=== PATIENT | female | born 1955 | race Caucasian/White ===

== ENCOUNTER 2016-06-10 09:20 | Outpatient (CLI) | payer MEDICARE | END 2016-06-10 09:21 | disposition home or self-care (01) | DX: G47.33 Obstructive sleep apnea (adult) (pediatric) (principal) | CPT/HCPCS: 99213; G0463 ==

== ENCOUNTER 2016-06-12 10:55 | Outpatient (CLI) | payer MEDICARE | END 2016-06-12 23:59 | disposition home or self-care (01) | DX: R19.7 Diarrhea, unspecified (principal) ==

== ENCOUNTER 2016-07-04 22:54 | Outpatient (CLI) | payer MEDICARE | END 2016-07-04 22:55 | disposition home or self-care (01) | DX: G47.33 Obstructive sleep apnea (adult) (pediatric) (principal); Z68.41 Body mass index [BMI] 40.0-44.9, adult ==

== ENCOUNTER 2016-10-07 10:47 | Outpatient (CLI) | payer MEDICARE ==
--- NOTE | 2016-10-15 16:27 | Mammography Report ---
DIGITAL SCREENING MAMMOGRAM: 10/07/2016 CLINICAL INDICATION: A 61-year-old for screening. COMPARISON: 05/2009, 09/2007, 06/2006. TECHNIQUE: Routine CC and MLO projections were obtained of the breasts. FINDINGS: The breasts again demonstrate scattered fibroglandular densities bilaterally. Intramammar y lymph nodes are stable. Coarse, typically benign calcifications are present. No suspicious masses , clustered microcalcifications, or regions of architectural distortion are identified. IMPRESSION: BENIGN FINDINGS. RECOMMENDATION: Routine annual screening unless otherwise clinically indicated. BI-RADS category 2, benign findings. STANDARD QUALIFYING STATEMENTS 1. This examination was reviewed with the aid of Computer-Aided Detection (CAD). 2. A negative or benign imaging report should not delay biopsy if clinically suspicious findings are present. Consider surgical consultation if warranted. More than 5% of cancers are not identified by i maging. 3. Dense breasts may obscure an underlying neoplasm. JOB #: [id number] EXT JOB #:[id number]
== END 2016-10-07 10:48 | disposition home or self-care (01) ==
LOC: DI.S 10:47
PROVIDERS: ATTEND Nurse Practitioner Family
DX: Z12.31 Encounter for screening mammogram for malignant neoplasm of breast (principal)
CPT/HCPCS: 77067

== ENCOUNTER 2017-01-06 09:49 | Outpatient (CLI) | payer MEDICARE ==
[2017-01-06 19:06] LABS: ALBUMIN/GLOBULIN RATIO 1.5 (1.0-2.2); BILIRUBIN,TOTAL 0.7 mg/dL (0.2-1.0); BUN - BLOOD UREA NITROGEN 14 mg/dL (6-20); CALCIUM 9.5 mg/dL (8.5-10.3); CARBON DIOXIDE - CO2 30 mmol/L (21-32); CHLORIDE 102 mmol/L (101-111); CHOL/HDL RATIO 3.3 (<4.4); CHOLESTEROL 188 mg/dL; CREATININE 0.7 mg/dL (0.4-1.0); GFR - MDRD 85 (>89); GLUCOSE 115 mg/dL (70-100); HDL CHOLESTEROL 57 mg/dL; POTASSIUM 4.1 mmol/L (3.5-5.0); SODIUM 139 mmol/L (135-145); TOTAL PROTEIN 7.3 g/dL (6.7-8.2); TRIGLYCERIDES 80 mg/dL; VLDL CHOLESTEROL 16 mg/dL
[2017-01-06 19:23] LABS: HEMOGLOBIN A1C 0.67 g/dL
[2017-01-06 19:30] LABS: THYROID STIMULATING HORMONE 0.85 uIU/mL (0.34-5.60)
== END 2017-01-06 09:50 | disposition home or self-care (01) ==
LOC: LAB.S 09:49
PROVIDERS: ATTEND Nurse Practitioner Family
DX: E11.9 Type 2 diabetes mellitus without complications (principal); E78.5 Hyperlipidemia, unspecified; E03.9 Hypothyroidism, unspecified
CPT/HCPCS: 36415; 80053; 80061; 82043; 83036; 84439; 84443

== ENCOUNTER 2017-05-27 15:15 | Outpatient (CLI) | payer MEDICARE | END 2017-05-27 15:16 | disposition home or self-care (01) | LOC: RT.S 15:15 | PROVIDERS: ATTEND Nurse Practitioner Family | DX: R07.89 Other chest pain (principal) | CPT/HCPCS: 93005 ==

== ENCOUNTER 2017-10-14 10:41 | Outpatient (CLI) | payer MEDICARE ==
--- NOTE | 2017-10-14 15:19 | XRAY Report ---
COMPLETE CERVICAL SPINE: 10/14/2017 CLINICAL INDICATION: Neck pain. FINDINGS: AP, lateral, oblique, odontoid views of the cervical spine demonstrate moderate degenerative disk and facet disease, with bilateral osseous neural foraminal narrowing, not significantly changed from 11/08/2014. There is no evidence of interval fracture. The prevertebral soft tissues appear unremarkable. IMPRESSION: MODERATE DEGENERATIVE CHANGES. TD: 10/14/2017 15:12
== END 2017-10-14 10:42 | disposition home or self-care (01) ==
LOC: DI.S 10:41
PROVIDERS: ATTEND Anesthesiology
DX: M50.30 Other cervical disc degeneration, unspecified cervical region (principal); M47.892 Other spondylosis, cervical region
CPT/HCPCS: 72050

== ENCOUNTER 2017-11-10 09:06 | Outpatient (CLI) | END 2017-11-10 09:07 | disposition home or self-care (01) ==

== ENCOUNTER 2018-02-18 08:04 | Outpatient (CLI) | payer MEDICARE ==
--- NOTE | 2018-02-19 14:18 | Mammography Report ---
Reason: BILAT SCREEN wTOMO Procedure Date: 02/18/2018 Accession Number: [id number] / [id number] Procedure: ROMI - Screening Mammo w/Yunior CPT Code: FULL RESULT: EXAM: Screening Mammo w/Yunior DATE: 02/18/2018 8:49 AM CLINICAL HISTORY: 62-year-old female with family history of breast cancer in a grandmother at age 57 and a male relative at age 80. TECHNIQUE: Bilateral CC and MLO views were obtained. COMPARISON: 10/07/2016, 05/29/2009, 09/25/2007, 06/23/2006. FINDINGS: The breasts demonstrate scattered fibroglandular densities bilaterally. Large rodlike bilateral calcifications as well as vascular bilateral calcifications are typically benign. No suspicious masses, clustered microcalcifications, or regions of architectural distortion are identified. IMPRESSION: Benign findings RECOMMENDATION: Routine annual screening unless otherwise clinically indicated. BIRADS CATEGORY 2: Benign findings STANDARD QUALIFYING STATEMENTS: 1. This examination was not reviewed with the aid of Computer-Aided Detection (CAD). 2. A negative or benign imaging report should not delay biopsy if clinically suspicious findings are present. Consider surgical consultation if warrented. More than 5% of cancers are not identified by imaging. 3. Dense breasts may obscure an underlying neoplasm. 4. This examination was reviewed with the aid of 3D breast imaging (tomosynthesis).
== END 2018-02-18 08:05 | disposition home or self-care (01) ==
LOC: DI 08:04
DX: Z12.31 Encounter for screening mammogram for malignant neoplasm of breast (principal); Z80.3 Family history of malignant neoplasm of breast
CPT/HCPCS: 77063; 77067

== ENCOUNTER 2018-02-23 08:34 | Outpatient (CLI) | payer MEDICARE ==
[2018-02-23 18:19] LABS: ALBUMIN 4.1 g/dL (3.2-5.5); ALBUMIN/GLOBULIN RATIO 1.4 (1.0-2.2); ALKALINE PHOSPHATASE 75 IU/L (42-121); ALT ALANINE AMINOTRANSFERASE 27 IU/L (10-60); AST ASPARTATE AMINOTRANSFERASE 20 IU/L (10-42); BILIRUBIN,TOTAL 0.8 mg/dL (0.2-1.0); BUN - BLOOD UREA NITROGEN 12 mg/dL (6-20); CALCIUM 9.1 mg/dL (8.5-10.3); CARBON DIOXIDE - CO2 31 mmol/L (21-32); CHLORIDE 103 mmol/L (101-111); CHOL/HDL RATIO 2.7 (<4.4); CHOLESTEROL 126 mg/dL; CREATININE 0.6 mg/dL (0.4-1.0); GFR - MDRD 102 (>89); GLUCOSE 132 mg/dL (70-100); HDL CHOLESTEROL 46 mg/dL; LDL CHOLESTEROL,CALCULATED 68 mg/dL; LDL/HDL RATIO 1.5 (<4.4); SODIUM 141 mmol/L (135-145); TOTAL PROTEIN 7.1 g/dL (6.7-8.2); VLDL CHOLESTEROL 12 mg/dL
[2018-02-23 19:16] LABS: HB2 TOTAL 15.7 g/dL; HEMOGLOBIN A1C 0.75 g/dL; HEMOGLOBIN A1C % 6.5 % (4.6-6.2)
== END 2018-02-23 08:35 | disposition home or self-care (01) ==
LOC: LAB.S 08:34
PROVIDERS: ATTEND Nurse Practitioner Family
DX: E11.9 Type 2 diabetes mellitus without complications (principal); E78.5 Hyperlipidemia, unspecified; E03.9 Hypothyroidism, unspecified
CPT/HCPCS: 36415; 80053; 80061; 82043; 83036; 83721; 84443

== ENCOUNTER 2018-07-21 11:09 | Outpatient (CLI) | payer MEDICARE ==
--- NOTE | 2018-07-21 15:14 | XRAY Report ---
Reason: BREATH SOUNDS,DECREASED,RIGHT LOWER LOBE,LEFT LOWE Procedure Date: 07/21/2018 Accession Number: [id number] / [id number] Procedure: XR - Chest 2 View X-Ray CPT Code: 91983 FULL RESULT: EXAM: CHEST RADIOGRAPHY EXAM DATE: 07/21/2018 11:18 AM. CLINICAL HISTORY: Breath sounds, decreased, right lower lobe, left lower. COMPARISON: None. TECHNIQUE: 2 views. FINDINGS: Lungs/Pleura: No focal opacities evident. No pleural effusion. No pneumothorax. Normal volumes. Mediastinum: Mild cardiomegaly. Other: The bones are qualitatively osteopenic; this limits evaluation for underlying fractures or masses. IMPRESSION: Mild cardiomegaly. No definite airspace consolidation. RADIA
== END 2018-07-21 11:10 | disposition home or self-care (01) ==
LOC: DI 11:09
PROVIDERS: ATTEND Nurse Practitioner
DX: R09.89 Other specified symptoms and signs involving the circulatory and respiratory systems (principal); F17.201 Nicotine dependence, unspecified, in remission; Z77.098 Contact with and (suspected) exposure to other hazardous, chiefly nonmedicinal, chemicals; I51.7 Cardiomegaly
CPT/HCPCS: 71046

== ENCOUNTER 2018-07-27 08:00 | Outpatient (CLI) | payer MEDICARE ==
[2018-07-27 17:59] LABS: BASOPHILS # (AUTO) 0.1 10^3/uL (0.0-0.1); BASOPHILS % (AUTO) 0.9 %; EOSINOPHILS # (AUTO) 0.2 10^3/uL (0.0-0.7); EOSINOPHILS % (AUTO) 2.8 %; HGB - HEMOGLOBIN 14.5 g/dL (12.0-16.0); LYMPHOCYTES # (AUTO) 1.4 10^3/uL (1.5-3.5); LYMPHOCYTES % (AUTO) 17.1 %; MEAN CORPUSCULAR HEMOGLOBIN 29.8 pg (27.0-31.0); MEAN CORPUSCULAR VOLUME 93.1 fL (81.0-99.0); MONOCYTES # (AUTO) 0.5 10^3/uL (0.0-1.0); NEUTROPHILS # (AUTO) 6.2 10^3/uL (1.5-6.6); NEUTROPHILS % (AUTO) 73.2 %; PLT - PLATELET COUNT 286 10^3/uL (130-450); RED BLOOD COUNT 4.85 10^6/uL (4.20-5.40); RED CELL DISTRIBUTION WIDTH 14.1 % (12.0-15.0); WHITE BLOOD COUNT 8.4 x10^3/uL (4.8-10.8)
[2018-07-27 18:32] LABS: ALBUMIN 3.9 g/dL (3.2-5.5); ALBUMIN/GLOBULIN RATIO 1.2 (1.0-2.2); ALKALINE PHOSPHATASE 67 IU/L (42-121); ALT ALANINE AMINOTRANSFERASE 27 IU/L (10-60); AST ASPARTATE AMINOTRANSFERASE 19 IU/L (10-42); BILIRUBIN,TOTAL 0.7 mg/dL (0.2-1.0); BUN - BLOOD UREA NITROGEN 15 mg/dL (6-20); CALCIUM 9.5 mg/dL (8.5-10.3); CARBON DIOXIDE - CO2 29 mmol/L (21-32); CHLORIDE 102 mmol/L (101-111); CHOL/HDL RATIO 2.9 (<4.4); CHOLESTEROL 136 mg/dL; CREATININE 0.6 mg/dL (0.4-1.0); GFR - MDRD 101 (>89); GLUCOSE 171 mg/dL (70-100); HDL CHOLESTEROL 47 mg/dL; LDL CHOLESTEROL,CALCULATED 75 mg/dL; LDL/HDL RATIO 1.6 (<4.4); SODIUM 140 mmol/L (135-145); TOTAL PROTEIN 7.2 g/dL (6.7-8.2); VLDL CHOLESTEROL 14 mg/dL
[2018-07-27 18:33] LABS: HB2 TOTAL 15.6 g/dL; HEMOGLOBIN A1C 0.84 g/dL; HEMOGLOBIN A1C % 7.1 % (4.6-6.2)
== END 2018-07-27 23:59 | disposition home or self-care (01) ==
LOC: LAB.S 08:00
PROVIDERS: ATTEND Nurse Practitioner
DX: E11.9 Type 2 diabetes mellitus without complications (principal); E78.5 Hyperlipidemia, unspecified
CPT/HCPCS: 36415; 80053; 80061; 82043; 83036; 83721; 85025

== ENCOUNTER 2018-07-28 08:00 | Outpatient (CLI) | payer MEDICARE | END 2018-07-28 23:59 | disposition home or self-care (01) | LOC: LAB.R 08:00 | PROVIDERS: ATTEND Nurse Practitioner | DX: E11.9 Type 2 diabetes mellitus without complications (principal) | CPT/HCPCS: 82043 ==

== ENCOUNTER 2018-09-02 09:37 | Outpatient (CLI) | payer MEDICARE | END 2018-09-02 09:38 | disposition home or self-care (01) | LOC: DI 09:37 | PROVIDERS: ATTEND Nurse Practitioner Family | DX: Z53.9 Procedure and treatment not carried out, unspecified reason (principal) ==

== ENCOUNTER 2018-10-28 08:44 | Outpatient (CLI) | payer MEDICARE ==
[2018-10-28] MEDS ORDERED: REGADENOSON 0.4 MG/5 ML SYRINGE IVP ONE ×2 (09:30→14:32)
[2018-10-28] MEDS ORDERED: AMINOPHYLLINE 250 MG/10 ML VIAL ONE (09:31)
--- NOTE | 2018-10-28 12:05 | CARDIAC PROCEDURE NOTE ---
DATE OF SERVICE: 10/28/2018 Physician: Vannessa Ledesma MD, [facility] INDICATION: Shortness of breath. CARDIAC RISK FACTORS: Postmenopausal status, obesity, hypertension, diabetes, elevated cholesterol, family history of heart disease. PROCEDURE: After signing informed consent, the patient underwent a Lexiscan pharmaceutical stress test with nuclear myocardial perfusion imaging. RESTING HEART RATE: 73. PEAK HEART RATE: 99. RESTING BLOOD PRESSURE: 142/95. PEAK BLOOD PRESSURE: 146/91. Lexiscan was infused per protocol. Patient developed brief shortness of breath and a headache and nausea. These symptoms resolved in less than a minute. She had no chest pain. Oxygen saturation was 96-98% on room air throughout the entire test. EKG: Normal sinus rhythm, within normal limits. EKG AT PEAK: No ST or T-wave changes. SUMMARY 1. No ischemic changes by EKG criteria during this pharmaceutical stress test. 2. Nuclear images reported separately. cc: MARCO Potter TD: 10/28/2018 11:53 MTDD
--- NOTE | 2018-10-29 12:34 | Nuclear Medicine Report ---
Reason: SHORTNESS OF BREATH Procedure Date: 10/28/2018 Accession Number: [id number] / [id number] Procedure: NM - Myocardial Perfusion STR/RST CPT Code: FULL RESULT: EXAM: SINGLE-ISOTOPE PHARMACOLOGICAL STRESS TEST WITH REGADENOSON. SINGLE-ISOTOPE AND TWO-DAY REST/STRESS MYOCARDIAL PERFUSION SCANS WITH TOMOGRAPHIC IMAGING, QUANTITATIVE ANALYSIS, WALL MOTION ANALYSIS AND CALCULATION OF EJECTION FRACTION. EXAM DATE: 10/28/2018 02:47 PM. CLINICAL HISTORY: SHORTNESS OF BREATH. COMPARISON: None. TECHNIQUE: A pharmacological stress was performed with the infusion of 0.4 mg regadenoson per protocol. According to protocol, 24.4 mCi of Tc-99m sestamibi was injected for stress myocardial perfusion scan. Motion correction was applied when appropriate. The following day after the intravenous administration of 26.6 mCi of Tc-99m sestamibi, a rest myocardial perfusion scan was done with tomography. Motion correction was applied when appropriate. Gated tomographic images were obtained for wall motion analysis and computation of left ventricular ejection fraction. FINDINGS: Perfusion images: Left ventricular chamber size appears normal at rest and unchanged at stress. No convincing fixed perfusion deficits. No convincing reversible perfusion deficits. SSS 2, SRS 0, SDS 2. Gated images: No convincing focal wall motion abnormality. Calculated left ventricular EDV 73 mL, ESV 22 mL. The left ventricular ejection fraction is estimated at 70% (normal > 50%). IMPRESSION: 1. No convincing reversible perfusion deficits to indicate stress-induced ischemia. 2. No convincing fixed perfusion deficits. 3. Left ventricular ejection fraction of 70% (normal > 50%). Please correlate findings with stress ECG tracings and procedure notes. RADIA
== END 2018-10-28 08:45 | disposition home or self-care (01) ==
LOC: DI 08:44
PROVIDERS: ATTEND Nurse Practitioner
DX: R06.02 Shortness of breath (principal); E66.9 Obesity, unspecified; I10 Essential (primary) hypertension; E11.9 Type 2 diabetes mellitus without complications; E78.00 Pure hypercholesterolemia, unspecified; Z82.49 Family history of ischemic heart disease and other diseases of the circulatory system; Z78.0 Asymptomatic menopausal state
CPT/HCPCS: 78452; 93017; A9500; J2785; 93016; 93018

== ENCOUNTER 2019-01-04 08:00 | Outpatient (CLI) | payer MEDICARE ==
[2019-01-04 11:20] LABS: HB2 TOTAL 15.1 g/dL; HEMOGLOBIN A1C 0.82 g/dL; HEMOGLOBIN A1C % 7.1 % (4.6-6.2)
== END 2019-01-04 08:01 | disposition home or self-care (01) ==
LOC: LAB.S 08:00
PROVIDERS: ATTEND Internal Medicine
DX: E11.9 Type 2 diabetes mellitus without complications (principal)
CPT/HCPCS: 36415; 83036

== ENCOUNTER 2019-02-05 07:25 | Outpatient (CLI) | payer MEDICARE ==
[2019-02-05 10:40] LABS: ALBUMIN 3.8 g/dL (3.2-5.5); ALBUMIN/GLOBULIN RATIO 1.3 (1.0-2.2); ALKALINE PHOSPHATASE 75 IU/L (42-121); ALT ALANINE AMINOTRANSFERASE 28 IU/L (10-60); AST ASPARTATE AMINOTRANSFERASE 20 IU/L (10-42); BILIRUBIN,TOTAL 0.5 mg/dL (0.2-1.0); BUN - BLOOD UREA NITROGEN 13 mg/dL (6-20); CALCIUM 9.2 mg/dL (8.5-10.3); CARBON DIOXIDE - CO2 30 mmol/L (21-32); CHLORIDE 103 mmol/L (101-111); CHOL/HDL RATIO 2.9 (<4.4); CHOLESTEROL 119 mg/dL; CREATININE 0.7 mg/dL (0.4-1.0); GFR - MDRD 85 (>89); GLUCOSE 176 mg/dL (70-100); HDL CHOLESTEROL 41 mg/dL; LDL CHOLESTEROL,CALCULATED 66 mg/dL; LDL/HDL RATIO 1.6 (<4.4); SODIUM 142 mmol/L (135-145); TOTAL PROTEIN 6.8 g/dL (6.7-8.2); VLDL CHOLESTEROL 12 mg/dL
[2019-02-05 10:54] LABS: HB2 TOTAL 14.4 g/dL; HEMOGLOBIN A1C 0.76 g/dL
== END 2019-02-05 07:26 | disposition home or self-care (01) ==
LOC: LAB.S 07:25
PROVIDERS: ATTEND Internal Medicine
DX: E78.5 Hyperlipidemia, unspecified (principal); E11.9 Type 2 diabetes mellitus without complications; E03.9 Hypothyroidism, unspecified
CPT/HCPCS: 36415; 80053; 80061; 83036; 83721; 84443

== ENCOUNTER 2019-02-18 10:28 | Outpatient (CLI) | payer MEDICARE ==
--- NOTE | 2019-02-23 17:03 | DEXA Report ---
Reason: MENOPAUSE Procedure Date: 02/18/2019 Accession Number: [id number] / [id number] Procedure: DEX - Dexa Spine and/or Hip CPT Code: FULL RESULT: EXAM: Dexa Spine and/or Hip DATE: 02/18/2019 10:52 AM CLINICAL HISTORY: MENOPAUSE TECHNIQUE: Dual energy x-ray absorptiometry (DXA) was performed on a mechatronic [employer] System. Regions measured are the AP Spine, femoral neck, and if needed forearm. COMPARISON: None. In accordance with the International Society for Clinical Densitometry (ISCD) guidelines, data from previous exams may be reanalyzed using current recommendations and techniques. This is done to allow a more accurate basis for comparison with the current study. FINDINGS: The data for the lumbar spine is as follows: BMD (g/cm/cm) T-SCORE Z-SCORE REGION L1 1.253 1.0 1.3 L2 1.283 0.7 0.9 L3 1.096 -0.9 -0.6 L4 1.209 0.1 0.3 TOTAL 1.205 0.2 0.5 NOTE: All evaluable vertebrae are used for classification The data for the hip is as follows: BMD (g/cm/cm) T-SCORE Z-SCORE REGION Neck 0.750 -2.1 -1.5 TOTAL 0.881 -1.0 -0.8 NOTE: The femoral neck or total proximal femur, whichever is lowest, is used for classification. IMPRESSION: THE WHO CLASSIFICATION BASED ON THE INTERNATIONAL REFERENCE STANDARD IS OSTEOPENIA. THE FRACTURE RISK IS INCREASED. RECOMMENDATION: Patients with diagnosis of osteoporosis or osteopenia should have regular bone mineral density assessment. For those eligible for Medicare, routine testing is allowed once every 2 years. Testing frequency can be increased for patients who have rapidly progressing disease or for those who are receiving medical therapy to restore bone mass. COMMENT: World Health Organization (WHO) definitions for osteoporosis and osteopenia: NORMAL BMD: T-score at -1.0 or higher, fracture risk is low OSTEOPENIA BMD: T-score between -1.0 and -2.5, fracture risk is increased. OSTEOPOROSIS BMD: T-score at -2.5 or lower, fracture risk is high. National Osteoporosis Foundation recommends: 1. Obtain adequate dietary calcium (at least 1200 mg per day) and vitamin D (400-800 international units per day). 2. Participate, as appropriate, in regular weightbearing and muscle-strengthening exercise. 3. Avoid tobacco use and reduce alcohol and caffeine intake. 4. For more detailed information see the website at www.NOF.org.
== END 2019-02-18 10:29 | disposition home or self-care (01) ==
LOC: DI 10:28
PROVIDERS: ATTEND Internal Medicine
DX: M85.89 Other specified disorders of bone density and structure, multiple sites (principal); Z78.0 Asymptomatic menopausal state
CPT/HCPCS: 77080

== ENCOUNTER 2019-06-22 14:12 | Outpatient (CLI) | payer MEDICARE ==
[2019-06-22 18:10] LABS: CREATININE,URINE 49.9 mg/dL; MICROALBUMIN,URINE 0.6 mg/dL (0-300.0)
== END 2019-06-22 14:13 | disposition home or self-care (01) ==
LOC: LAB.S 14:12
PROVIDERS: ATTEND Physician Assistant Medical
DX: E11.9 Type 2 diabetes mellitus without complications (principal)
CPT/HCPCS: 82043; 82570

== ENCOUNTER 2019-11-09 10:15 | Outpatient (CLI) | payer MEDICARE ==
--- NOTE | 2019-11-09 13:03 | XRAY Report ---
PROCEDURE: Cervical Spine Complete INDICATIONS: NECK PX, CHRONIC, NUMBNESS HAND, ARM PAIN RIGHT TECHNIQUE: 5 view(s) of the cervical spine were acquired. COMPARISON: Xray cervical spine 10/14/17 FINDINGS: Bones: No fractures or dislocations to the C7-T1 level. The lateral masses of C1 appear intact o n the odontoid view. No suspicious bony lesions. There is reversal of cervical curvature. Trace ant erolisthesis of C3 on C4 is present. Severe multilevel disc space narrowing from C3-4 through C6-7 is present. Nonbridging anterior osteophytes are present. Multilevel uncovertebral hypertrophy is prese nt. There are right foraminal narrowing is noted at C3-3-4, C4-5 as well as mild to moderate left for aminal narrowing at C4-5, C5-6 and C6-7. Soft tissues: No prevertebral soft tissue swelling. IMPRESSION: Multilevel degenerative changes as above. MRI is recommended as clinically indicated for additional evaluation of foraminal narrowing and potential nerve root flattening. Reviewed by: Jazmine Clark MD on 11/09/2019 1:02 PM PDT Approved by: Jazmine Clark MD on 11/09/2019 1:02 PM PDT Station ID: [id number]
== END 2019-11-09 10:16 | disposition home or self-care (01) ==
LOC: DI.S 10:15
PROVIDERS: ATTEND Registered Nurse
DX: M50.31 Other cervical disc degeneration, high cervical region (principal); M47.812 Spondylosis without myelopathy or radiculopathy, cervical region; M48.02 Spinal stenosis, cervical region
CPT/HCPCS: 72050

== ENCOUNTER 2019-11-30 07:26 | Outpatient (CLI) | payer MEDICARE ==
[2019-11-30 15:46] LABS: CALCIUM 9.9 mg/dL (8.5-10.3); CREATININE 1.1 mg/dL (0.4-1.0)
== END 2019-11-30 07:27 | disposition home or self-care (01) ==
LOC: LAB.S 07:26
PROVIDERS: ATTEND Internal Medicine Cardiovascular Disease
DX: I10 Essential (primary) hypertension (principal)
CPT/HCPCS: 36415; 80048

== ENCOUNTER 2019-12-07 12:02 | Outpatient (CLI) | payer MEDICARE ==
--- NOTE | 2019-12-07 14:06 | MRI Report ---
PROCEDURE: Cervical Spine W/O INDICATIONS: Chronic neck pain, hand numbness TECHNIQUE: Noncontrast sagittal T1 spin echo and T2 fast spin echo, sagittal STIR, foraminal oblique sagittal T2 fast spin echo, and axial gradient echo or T2 fast spin echo through the cervical spine. COMPARISON: None. FINDINGS: Image quality: Excellent. Alignment and Curvature: Straightening of usual cervical lordosis. 2 mm retrolisthesis of C3 on C4. V ertebral body heights maintained. Bone Marrow: No suspicious focal marrow signal abnormality or bone marrow edema. Non-edematous marrow signal change along the opposing endplates from C3 C4-C6 C7. Spinal Cord: Visualized spinal cord has normal size and signal. No cerebellar tonsillar herniation. Paraspinous Soft Tissues: No paravertebral masses. Prevertebral soft tissues are normal in thicknes s. C2-C3: Posterior disc-osteophyte complex flattens the ventral thecal sac. Facet uncovertebral hypert rophy contribute to moderate right and mild left neural foraminal stenosis. C3-C4: There is overall moderate spinal canal stenosis due to a combination of posterior disc-osteo phyte complex and pseudobulge related to the anterolisthesis, in conjunction with buckling of the lig amentum flavum. There is flattening of the ventral cord with complete effacement of CSF ventral and d orsal to the cord. Facet and uncovertebral hypertrophy contribute to severe bilateral neural foramina l stenosis. C4-C5: Posterior disc-osteophyte complex flattens the ventral cord. Facet uncovertebral hypertrophic to moderate-severe bilateral neural foraminal stenosis. C5-C6: Posterior disc-osteophyte complex flattens the ventral thecal sac and contributes to overall moderate spinal canal stenosis in conjunction with buckling of the ligamentum flavum. Facet and uncov ertebral hypertrophy contribute to severe bilateral neural foraminal stenosis. C6-C7: Posterior disc-osteophyte complex flattens and indents the ventral thecal sac and contribute to overall moderate spinal canal stenosis. There is complete effacement of CSF surrounding the cord. Buckling of the ligamentum flavum also contributes to spinal canal stenosis. Severe bilateral neural foraminal stenosis related to facet and uncovertebral hypertrophy. C7-T1: No spinal canal stenosis. Mild bilateral neural foraminal narrowing related to uncovertebral spurring. IMPRESSION: Moderate spinal canal stenosis at C3-C4, C5-C6, and C6-C7, related to posterior disc osteophyte osteo phyte complexes and buckling of the ligamentum flavum at each level. Variant degrees of neural foraminal stenosis, severe bilaterally from C3-C4 through C6-C7. Reviewed by: Tigre Wylie MD on 12/07/2019 2:04 PM PDT Approved by: Tigre Wylie MD on 12/07/2019 2:04 PM PDT Station ID: [id number]
== END 2019-12-07 12:03 | disposition home or self-care (01) ==
LOC: DI 12:02
PROVIDERS: ATTEND Registered Nurse
DX: M48.02 Spinal stenosis, cervical region (principal); M25.78 Osteophyte, vertebrae; R20.0 Anesthesia of skin; R20.2 Paresthesia of skin; M79.601 Pain in right arm
CPT/HCPCS: 72141

== ENCOUNTER 2020-05-04 07:27 | Outpatient (CLI) | payer MEDICARE ==
[2020-05-04 14:43] LABS: BASOPHILS # (AUTO) 0.1 10^3/uL (0.0-0.1); BASOPHILS % (AUTO) 0.8 %; EOSINOPHILS # (AUTO) 0.4 10^3/uL (0.0-0.7); EOSINOPHILS % (AUTO) 3.2 %; HGB - HEMOGLOBIN 13.4 g/dL (12.0-16.0); LYMPHOCYTES % (AUTO) 17.5 %; MEAN CORPUSCULAR HGB CONC 30.5 g/dL (32.0-36.0); MEAN CORPUSCULAR VOLUME 98.4 fL (81.0-99.0); MEAN PLATELET VOLUME 10.2 fL (7.9-10.8); MONOCYTES % (AUTO) 8.6 %; NEUTROPHILS # (AUTO) 7.7 10^3/uL (1.5-6.6); NEUTROPHILS % (AUTO) 67.9 %; PLT - PLATELET COUNT 354 10^3/uL (130-450); RED BLOOD COUNT 4.47 10^6/uL (4.20-5.40); RED CELL DISTRIBUTION WIDTH 13.3 % (12.0-15.0); WHITE BLOOD COUNT 11.3 x10^3/uL (4.8-10.8)
[2020-05-04 16:00] LABS: HEMOGLOBIN A1c% 7.1 % (4.27-6.07)
[2020-05-04 16:01] LABS: ALBUMIN 3.9 g/dL (3.2-5.5); ALBUMIN/GLOBULIN RATIO 1.3 (1.0-2.2); ALKALINE PHOSPHATASE 68 IU/L (42-121); ALT ALANINE AMINOTRANSFERASE 26 IU/L (10-60); AST ASPARTATE AMINOTRANSFERASE 20 IU/L (10-42); BILIRUBIN,TOTAL 0.5 mg/dL (0.2-1.0); BUN - BLOOD UREA NITROGEN 20 mg/dL (6-20); CALCIUM 9.7 mg/dL (8.5-10.3); CARBON DIOXIDE - CO2 28 mmol/L (21-32); CHLORIDE 98 mmol/L (101-111); CHOL/HDL RATIO 3.4 (<4.4); CHOLESTEROL 141 mg/dL; CREATININE 0.9 mg/dL (0.4-1.0); GLUCOSE 173 mg/dL (70-100); HDL CHOLESTEROL 41 mg/dL; LDL CHOLESTEROL,CALCULATED 80 mg/dL; SODIUM 137 mmol/L (135-145); VLDL CHOLESTEROL 20 mg/dL
[2020-05-04 16:16] LABS: CREATININE,URINE 185.7 mg/dL; MICROALBUM/CREATININE RATIO,UR 9.2 ug/mg (<30.0); MICROALBUMIN,URINE 1.7 mg/dL (0-300.0)
== END 2020-05-04 07:28 | disposition home or self-care (01) ==
LOC: LAB.S 07:27
PROVIDERS: ATTEND Physician Assistant
DX: I10 Essential (primary) hypertension (principal); E11.9 Type 2 diabetes mellitus without complications; E78.5 Hyperlipidemia, unspecified; E03.9 Hypothyroidism, unspecified; G47.33 Obstructive sleep apnea (adult) (pediatric); F33.2 Major depressive disorder, recurrent severe without psychotic features; E66.01 Morbid (severe) obesity due to excess calories
CPT/HCPCS: 36415; 80053; 80061; 82043; 82570; 83036; 83721; 84443; 85025

== ENCOUNTER 2020-08-31 07:31 | Outpatient (CLI) | payer MEDICARE, OTHER ==
[2020-08-31 15:24] LABS: CALCIUM 9.9 mg/dL (8.5-10.3); CREATININE 0.9 mg/dL (0.4-1.0)
[2020-08-31 15:50] LABS: ESTIMATED AVERAGE GLUCOSE 166 mg/dL (70-100); HEMOGLOBIN A1c% 7.4 % (4.27-6.07)
[2020-08-31 15:56] LABS: CREATININE,URINE 93.4 mg/dL; MICROALBUM/CREATININE RATIO,UR 9.6 ug/mg (<30.0); MICROALBUMIN,URINE 0.9 mg/dL (0-300.0)
== END 2020-08-31 07:32 | disposition home or self-care (01) ==
LOC: LAB.S 07:31
PROVIDERS: ATTEND Physician Assistant
DX: E11.9 Type 2 diabetes mellitus without complications (principal); E78.5 Hyperlipidemia, unspecified
CPT/HCPCS: 36415; 80048; 82043; 82570; 83036

== ENCOUNTER 2021-01-26 10:52 | Outpatient (CLI) | payer MEDICARE ==
[2021-01-26 14:51] LABS: BASOPHILS # (AUTO) 0.1 10^3/uL (0.0-0.1); BASOPHILS % (AUTO) 0.9 %; EOSINOPHILS # (AUTO) 0.4 10^3/uL (0.0-0.7); EOSINOPHILS % (AUTO) 3.6 %; HCT - HEMATOCRIT 44.1 % (37.0-47.0); HGB - HEMOGLOBIN 12.8 g/dL (12.0-16.0); LYMPHOCYTES # (AUTO) 1.9 10^3/uL (1.5-3.5); LYMPHOCYTES % (AUTO) 17.9 %; MEAN CORPUSCULAR HEMOGLOBIN 26.8 pg (27.0-31.0); MEAN CORPUSCULAR VOLUME 92.3 fL (81.0-99.0); MEAN PLATELET VOLUME 10.6 fL (7.9-10.8); MONOCYTES # (AUTO) 0.9 10^3/uL (0.0-1.0); MONOCYTES % (AUTO) 8.5 %; NEUTROPHILS # (AUTO) 7.1 10^3/uL (1.5-6.6); NEUTROPHILS % (AUTO) 68.1 %; PLT - PLATELET COUNT 450 10^3/uL (130-450); RED BLOOD COUNT 4.78 10^6/uL (4.20-5.40); RED CELL DISTRIBUTION WIDTH 14.9 % (12.0-15.0); WHITE BLOOD COUNT 10.5 x10^3/uL (4.8-10.8)
[2021-01-26 15:40] LABS: ALBUMIN 3.6 g/dL (3.2-5.5); ALBUMIN/GLOBULIN RATIO 1.1 (1.0-2.2); BILIRUBIN,TOTAL 0.7 mg/dL (0.2-1.0); CALCIUM 9.1 mg/dL (8.5-10.3); CREATININE 0.8 mg/dL (0.4-1.0); POTASSIUM 4.5 mmol/L (3.5-5.0); TOTAL PROTEIN 6.9 g/dL (6.7-8.2)
[2021-01-26 20:49] LABS: ESTIMATED AVERAGE GLUCOSE 183 mg/dL (70-100)
== END 2021-01-26 10:53 | disposition home or self-care (01) ==
LOC: LAB.S 10:52
PROVIDERS: ATTEND Physician Assistant
DX: R06.02 Shortness of breath (principal); R60.0 Localized edema; R06.01 Orthopnea; I10 Essential (primary) hypertension; E11.9 Type 2 diabetes mellitus without complications; E78.5 Hyperlipidemia, unspecified; E03.9 Hypothyroidism, unspecified; E66.01 Morbid (severe) obesity due to excess calories
CPT/HCPCS: 36415; 80053; 83036; 83880; 84484; 85025

== ENCOUNTER 2021-02-15 09:16 | Outpatient (CLI) | payer MEDICARE | END 2021-02-15 09:17 | disposition home or self-care (01) | LOC: DI 09:16 | PROVIDERS: ATTEND Physician Assistant | DX: R06.02 Shortness of breath (principal); R60.0 Localized edema; R06.01 Orthopnea; I11.9 Hypertensive heart disease without heart failure | CPT/HCPCS: 93306 ==

== ENCOUNTER 2021-04-06 19:43 | Emergency (ER) | payer MEDICARE, OTHER ==
--- NOTE | 2021-04-06 23:38 | ED Physician Documentation ---
History of Present Illness - Stated complaint Stated Complaint: LEFT LEG PX, DISCOLORED TOES - Chief complaint Chief Complaint: Ext Problem - History obtained from History obtained from: Patient - Additonal information Additional information: 66yF with pmh dm, LLE infection on antibiotics, p/w spreading erythema and pain of LLE after missing a dose of antibiotics. denies fever, numbness, weakness. Review of Systems Ten Systems: 10 systems reviewed and negative Constitutional: denies: Fever, Chills Skin: reports: Other (erythema) Musculoskeletal: reports: Extremity pain PD PAST MEDICAL HISTORY - Past Medical History Cardiovascular: Hypertension, High cholesterol Respiratory: Shortness of breath, Sleep apnea, Other Neuro: Other Endocrine/Autoimmune: Type 2 diabetes, HyPOthyroidism GI: Colon polyps FINANCIAL PLANNING ADVISER: None : None HEENT: None Psych: Depression, Anxiety, Panic attacks Musculoskeletal: Osteoarthritis Derm: None - Past Surgical History Past Surgical History: Yes General: Cholecystectomy, Colonoscopy, Other /FINANCIAL PLANNING ADVISER: Tubal ligation - Present Medications Home Medications: Ambulatory Orders Medication Instructions Recorded Confirmed ARIPiprazole [Abilify] 10 mg PO DAILY 10/23/14 04/04/21 Aspirin [Aspir 81] 81 mg PO DAILY 10/23/14 04/04/21 Levothyroxine [Synthroid] 100 mcg PO QDAC 10/23/14 04/04/21 Naproxen 500 mg PO BID 10/23/14 04/04/21 fluPHENAZine HCl [Fluphenazine HCl] 10 mg PO DAILY 10/23/14 04/04/21 glipiZIDE [Glipizide] 10 mg PO DAILY 10/23/14 04/04/21 metFORMIN [Glucophage] 1,000 mg PO BID 10/23/14 04/04/21 Atorvastatin Calcium 40 mg PO DAILY 04/04/21 04/04/21 Dextroamphetamine/Amphetamine 30 mg PO DAILY 04/04/21 04/04/21 [Dextroamp-Amphetamine 5 mg Tab] Losartan/Hydrochlorothiazide 1 tab PO DAILY 04/04/21 04/04/21 [Losartan-Hctz 100-12.5 mg Tab] amLODIPine [Norvasc] 5 mg PO DAILY 04/04/21 04/04/21 Clindamycin [Cleocin] 450 mg PO TID 10 Days #30 tab 04/07/21 Lactobacillus Acidophilus/Fos 1 each PO QDAC #30 tablet 04/07/21 [Acidophilus Probiotic Tablet] - Allergies Allergies/Adverse Reactions: Allergies Allergy/AdvReac Type Severity Reaction Status Date / Time povidone-iodine Allergy Edema Verified 04/06/21 19:54 [From Betadine] soap * [From Betadine] Allergy Edema Verified 04/06/21 19:54 - Social History Does the pt smoke?: No Smoking Status: Former smoker (Quit smoking about ten years ago.) Does the pt drink ETOH?: No Does the pt have substance abuse?: No - Immunizations Immunizations are current?: Yes PD ED PE NORMAL - Vitals Vital signs reviewed: Yes - General General: Alert and oriented X 3, No acute distress, Well developed/nourished - HEENT HEENT: Atraumatic, PERRL, EOMI - Derm Derm: Normal color, Warm and dry, Other (erythema to LLE extending to midcalf, worse on anterior aspect) - Extremities Extremities: No deformity, Other (2+ BL DP pulses. normal sensation and cap refill) - Neuro Neuro: Alert and oriented X 3 - Psych Psych: Normal mood, Normal affect Results - Vitals Vitals: Vital Signs - 24 hr 04/06/21 04/07/21 19:50 02:32 Temperature 36.1 C L 36.7 C Heart Rate 111 H 72 Respiratory 18 16 Rate Blood Pressure 149/92 H 149/98 H O2 Saturation 94 98 Oxygen O2 Source Room air PD MEDICAL DECISION MAKING - ED course ED course: 66-year-old woman presents with mild erythema to left lower extremity refractory to oral doxycycline. Patient did miss a dose yesterday. Will place on clindamycin and encouraged her to to be very diligent not to miss any doses. S he will follow up for wound check in 48 hours and if the infection is spreading then we will consider for admission for IV antibiotics. Return precautions given. Departure - Departure Disposition: 01 Home, Self Care Clinical Impression: Cellulitis Condition: Good Instructions: Cellulitis Dc Prescriptions: Lactobacillus Acidophilus/Fos [Acidophilus Probiotic Tablet] 1 each PO QDAC #30 tablet Clindamycin [Cleocin] 450 mg PO TID 10 Days #30 tab Comments: You were seen in the emergency department for evaluation of left foot infection. Please fill your new prescription and return to the emergency department if the redness spreads past the lines we abby today. Follow up for a checkup in 48 hours. Return if you have fevers. Please also return to the emergency department if you have any new or worsening symptoms or other concerns. Discharge Date/Time: 04/07/21 02:40
--- NOTE | 2021-04-07 00:07 | Ultrasound Report ---
PROCEDURE: Duplex Ext Veins Left INDICATIONS: L calf pain, redness to anterior aspect TECHNIQUE: Real-time imaging, as well as color and pulse Doppler interrogation, were performed of the lower extr emity deep veins from the inguinal ligament to the popliteal fossa. COMPARISON: None. FINDINGS: The deep veins are normally compressible, and free of intraluminal thrombus. Color and pu lse Doppler demonstrate normal phasic intraluminal flow. There is normal augmentation response to di stal compression maneuver. IMPRESSION: Negative duplex venous ultrasound of the left lower extremity for DVT. Reviewed by: Gunner Kang MD on 04/07/2021 12:06 AM PST Approved by: Gunner Kang MD on 04/07/2021 12:06 AM PST Station ID: [id number]
[2021-04-07] MEDS ORDERED: CLINDAMYCIN 150 MG CAPSULE PO STA (01:59)
[2021-04-07 02:40] VITALS: BP 149/98
== END 2021-04-07 02:40 | disposition home or self-care (01) ==
LOC: ED 19:43
DX: L03.116 Cellulitis of left lower limb (principal); T36.4X6A Underdosing of tetracyclines, initial encounter; Z91.128 Patient's intentional underdosing of medication regimen for other reason; Y92.9 Unspecified place or not applicable; I10 Essential (primary) hypertension; E11.9 Type 2 diabetes mellitus without complications; E03.9 Hypothyroidism, unspecified; G47.30 Sleep apnea, unspecified; Z79.84 Long term (current) use of oral hypoglycemic drugs; Z79.82 Long term (current) use of aspirin; Z79.899 Other long term (current) drug therapy; Z87.891 Personal history of nicotine dependence
CPT/HCPCS: 93971; 99283; 99284; A9270

== ENCOUNTER 2021-05-10 08:00 | Outpatient (CLI) | payer MEDICARE ==
[2021-05-10 15:25] LABS: BASOPHILS # (AUTO) 0.1 10^3/uL (0.0-0.1); BASOPHILS % (AUTO) 0.7 %; EOSINOPHILS # (AUTO) 0.5 10^3/uL (0.0-0.7); EOSINOPHILS % (AUTO) 5.9 %; HCT - HEMATOCRIT 45.4 % (37.0-47.0); HGB - HEMOGLOBIN 13.9 g/dL (12.0-16.0); LYMPHOCYTES # (AUTO) 1.6 10^3/uL (1.5-3.5); LYMPHOCYTES % (AUTO) 18.3 %; MEAN CORPUSCULAR HEMOGLOBIN 28.9 pg (27.0-31.0); MEAN CORPUSCULAR HGB CONC 30.6 g/dL (32.0-36.0); MEAN CORPUSCULAR VOLUME 94.4 fL (81.0-99.0); MEAN PLATELET VOLUME 10.4 fL (7.9-10.8); MONOCYTES # (AUTO) 0.8 10^3/uL (0.0-1.0); MONOCYTES % (AUTO) 9.6 %; NEUTROPHILS # (AUTO) 5.4 10^3/uL (1.5-6.6); NEUTROPHILS % (AUTO) 63.7 %; PLT - PLATELET COUNT 296 10^3/uL (130-450); RED BLOOD COUNT 4.81 10^6/uL (4.20-5.40); RED CELL DISTRIBUTION WIDTH 15.5 % (12.0-15.0); WHITE BLOOD COUNT 8.5 x10^3/uL (4.8-10.8)
[2021-05-10 15:39] LABS: CALCIUM 9.2 mg/dL (8.5-10.3); POTASSIUM 4.3 mmol/L (3.5-5.0)
[2021-05-10 15:46] LABS: PT - PROTHROMBIN TIME 10.7 secs (9.9-12.6)
== END 2021-05-10 23:59 | disposition home or self-care (01) ==
LOC: LAB.S 08:00
PROVIDERS: ATTEND Emergency Medicine
DX: I73.9 Peripheral vascular disease, unspecified (principal)
CPT/HCPCS: 36415; 80048; 85025; 85610

== ENCOUNTER 2021-05-23 10:04 | Outpatient (CLI) | payer MEDICARE ==
[2021-05-23 15:39] LABS: CREATININE,URINE 92.4 mg/dL; MICROALBUM/CREATININE RATIO,UR 7.6 ug/mg (<30.0); MICROALBUMIN,URINE 0.7 mg/dL (0-300.0)
[2021-05-23 15:46] LABS: THYROID STIMULATING HORMONE 2.29 uIU/mL (0.34-5.60)
[2021-05-23 19:21] LABS: ESTIMATED AVERAGE GLUCOSE 177 mg/dL (70-100); HEMOGLOBIN A1c% 7.8 % (4.27-6.07)
== END 2021-05-23 10:05 | disposition home or self-care (01) ==
LOC: LAB.S 10:04
PROVIDERS: ATTEND Registered Nurse
DX: E11.9 Type 2 diabetes mellitus without complications (principal); E03.9 Hypothyroidism, unspecified
CPT/HCPCS: 36415; 82043; 82570; 83036; 84443

== ENCOUNTER 2021-09-25 08:00 | Outpatient (CLI) | payer MEDICARE ==
--- NOTE | 2021-09-25 08:40 | XRAY Report ---
PROCEDURE: Chest 2 View X-Ray INDICATIONS: SHORTNESS OF BREATH TECHNIQUE: 2 view(s) of the chest. COMPARISON: July 21, 2018. FINDINGS: SUPPORT DEVICES: None. LUNGS/PLEURA: Coarsened interstitial markings. No focal consolidation, pleural effusion or space-occu pying pneumothorax. MEDIASTINUM: The cardiac silhouette is upper limits of normal. BONES/SOFT TISSUES: No acute abnormality. Bridging anterior syndesmophyte/osteophytes. IMPRESSION: 1.No acute cardiopulmonary abnormality. Reviewed by: Jhonny Major MD on 09/25/2021 8:38 AM PDT Approved by: Jhonny Major MD on 09/25/2021 8:38 AM PDT Station ID: [id number]
== END 2021-09-25 23:59 | disposition home or self-care (01) ==
LOC: DI.S 08:00
PROVIDERS: ATTEND Physician Assistant
DX: R06.02 Shortness of breath (principal)

== ENCOUNTER 2021-09-25 13:06 | Emergency (ER) | payer MEDICARE ==
--- OUTSIDE RECORDS SUMMARY | 2021-09-25 13:23 | EXTERNAL MEDICAL SUMMARY RPT | Continuity of Care Document ---
:1955 Author Organization [facility] Address [address] [place] [address] Phone Care Team Providers Name Role Phone CHILD WELFARE CONSULTANT-C Unavailable Unavailable Allergies No information. Encounters No information. Medications date description facility [id number] oxybutynin chloride [facility] [place] [id number] cinnamon bark [facility] [place] [id number] potassium gluconate [facility] [place] [id number] semaglutide [facility] [place] [id number] semaglutide [facility] [place] [id number] aripiprazole [facility] [place] Problems date description facility [id number] Total score? [facility] [place] [id number] Tobacco use and exposure [facility] [place] [id number] Tobacco smoking status [facility] Walk[facility]In [facility] Care [facility] Services [place] [id number] Shortness of breath [facility] [place] [id number] Health-related behavior [facility] [place] [id number] Former smoker [facility] [place] [id number] Exercise [facility] [place] [id number] Dyspnea [facility] [place] [id number] Details of drug misuse behavior [facility] [place] [id number] CHEST 2 VIEW [facility] [place] [id number] Alcohol use [facility] [place] 20210911 Total score? [facility] [place] [id number] Tobacco use and exposure [facility] [place] [id number] Tobacco smoking status NHIS Walk-In [facility] [place] [id number] Overactive bladder [facility] [place] 20210911 Other [place] and fatigue Walk-In [facility] Primary Care & Ancillary Services [place] 20210911 Other fatigue [facility] [place] 20210911 Hypertonicity of bladder [facility] [place] 20210911 Former smoker [facility] [place] [id number] Fatigue [facility] [place] 20210911 Details of drug misuse behavior [facility] Primary Care & Ancillary Services [place] [id number] Bladder muscle dysfunction - Walk-In [facility] Primary Care & overactive Ancillary Services [place] 20210911 Alcohol use [facility] [place] [id number] Total score? [facility] [place] [id number] Tobacco use and exposure Walk[facility] Primary Care & Ancillary Services [place] [id number] Tobacco smoking status NHIS [facility] Care [facility] Services [place] [id number] Health-related behavior [facility] Primary Care & Ancillary Services [place] [id number] Former smoker [facility] [place] [id number] Exercise [facility] [place] [id number] Details of drug misuse behavior [facility] Primary Care [facility] Anc[facility] Services [place] [id number] Alcohol use [facility] [place] [id number] Basic Metabolic Panel (BMP) Walk[facility] Primary Care & Ancillary Services [place] Procedures date description facility [id number] EKG Office Complete [facility] [place] Results No information. Vital Signs date measurement value source 20210911 weight_standard 271 lb [id number] weight_metric 122.92 kg 20210911 temperature_standard 97.4 F 20210911 temperature_metric 36.33 C 20210911 respiration_rate 16 /min 20210911 height_standard 66 in 20210911 height_metric 167.64 cm 20210911 heart_rate 109 /min 20210911 BP_systolic 135 mm[Hg] 20210911 BP_diastolic 62 mm[Hg] 20210911 BMI 43.90 kg/m2 20210925 weight_standard 272 lb 20210925 weight_metric 123.38 kg 20210925 temperature_standard 97.6 F 20210925 temperature_metric 36.44 C 20210925 respiration_rate 20 /min 20210925 height_standard 66 in 20210925 height_metric 167.64 cm 20210925 heart_rate 97 /min 20210925 BP_systolic 158 mm[Hg] 20210925 BP_diastolic 85 mm[Hg] 20210925 BMI 44.06 kg/m2
[2021-09-25 13:43] LABS: BASOPHILS # (AUTO) 0.1 10^3/uL (0.0-0.1); BASOPHILS % (AUTO) 0.4 %; EOSINOPHILS # (AUTO) 0.3 10^3/uL (0.0-0.7); EOSINOPHILS % (AUTO) 2.5 %; HCT - HEMATOCRIT 45.5 % (37.0-47.0); HGB - HEMOGLOBIN 14.4 g/dL (12.0-16.0); LYMPHOCYTES # (AUTO) 1.7 10^3/uL (1.5-3.5); LYMPHOCYTES % (AUTO) 14.8 %; MEAN CORPUSCULAR HEMOGLOBIN 29.6 pg (27.0-31.0); MEAN CORPUSCULAR HGB CONC 31.6 g/dL (32.0-36.0); MEAN CORPUSCULAR VOLUME 93.4 fL (81.0-99.0); MONOCYTES % (AUTO) 8.4 %; NEUTROPHILS # (AUTO) 8.2 10^3/uL (1.5-6.6); NEUTROPHILS % (AUTO) 72.9 %; PLT - PLATELET COUNT 320 10^3/uL (130-450); RED BLOOD COUNT 4.87 10^6/uL (4.20-5.40); RED CELL DISTRIBUTION WIDTH 14.1 % (12.0-15.0); WHITE BLOOD COUNT 11.3 x10^3/uL (4.8-10.8)
[2021-09-25 13:59] LABS: ALBUMIN 3.8 g/dL (3.2-5.5); ALBUMIN/GLOBULIN RATIO 1.1 (1.0-2.2); BILIRUBIN,TOTAL 0.7 mg/dL (0.2-1.0); CALCIUM 9.6 mg/dL (8.5-10.3); CREATININE 0.8 mg/dL (0.4-1.0); POTASSIUM 4.6 mmol/L (3.5-5.0); TOTAL PROTEIN 7.4 g/dL (6.7-8.2)
--- NOTE | 2021-09-25 14:14 | ED Physician Documentation ---
PD HPI CHEST PAIN - Stated complaint Stated Complaint: SOA,CHEST PX,SWOLLEN FEET - Chief complaint Chief Complaint: Resp - History obtained from History obtained from: Patient - History of Present Illness Timing - onset: How many days ago (3) Timing - onset during: Rest Timing - duration: Days (3) Timing - details: Gradual onset Pain level max: 1 Pain level now: 0 Quality: Sharp Improved by: No: Rest, Oxygen, Nitro, ASA, Antacids, Other medication, Nothing Worsened by: No: Exertion, Inspiration, Eating, Movement, Palpation, Position Associated symptoms: Shortness of air. No: Diaphoresis, Nausea, Vomiting, Feeling faint / dizzy, General Weakness Similar symptoms before: Diagnosis (Patient states this feels similar to her normal anxiety) - Additional information Additional information: Patient is a 66-year-old female who states that she had 1 episode of sharp chest pain today that lasted for about 2 to 3 seconds. She states she was at her doctor's office and so they informed her to come here for evaluation. She states that she has had shortness of breath intermittently over the past 3 days as well. No fevers. No cough. No chills. Nothing makes it better or worse. 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 : None HEENT: None Psych: Depression, Anxiety, Panic attacks Musculoskeletal: Osteoarthritis Derm: None - Past Surgical History Past Surgical History: Yes General: Cholecystectomy, Colonoscopy, Other /PIANO [employer]GAN 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: Tubal ligation - Present Medications Home Medications: Ambulatory Orders Medication Instructions Recorded Confirmed ARIPiprazole [Abilify] 10 mg PO DAILY 10/23/14 09/25/21 Aspirin [Aspir 81] 81 mg PO DAILY 10/23/14 09/25/21 Levothyroxine [Synthroid] 100 mcg PO QDAC 10/23/14 09/25/21 Naproxen 500 mg PO BID 10/23/14 09/25/21 fluPHENAZine HCl [Fluphenazine HCl] 10 mg PO BID 10/23/14 09/25/21 glipiZIDE [Glipizide] 10 mg PO BID 10/23/14 09/25/21 metFORMIN [Glucophage] 1,000 mg PO BID 10/23/14 09/25/21 Atorvastatin Calcium 40 mg PO DAILY PM 04/04/21 09/25/21 Dextroamphetamine/Amphetamine 30 mg PO BID 04/04/21 09/25/21 [Dextroamp-Amphetamine 5 mg Tab] Losartan/Hydrochlorothiazide 1 tab PO DAILY 04/04/21 09/25/21 [Losartan-Hctz 100-12.5 mg Tab] amLODIPine [Norvasc] 5 mg PO DAILY 04/04/21 09/25/21 Diclofenac Sodium [Voltaren 20 gm TP DAILY 09/25/21 09/25/21 Arthritis Pain] Lisinopril [Zestril] 40 mg PO DAILY 09/25/21 09/25/21 Omeprazole Magnesium 20 mg PO DAILY 09/25/21 09/25/21 Oxycodone HCl 10 mg ORAL DAILY PRN 09/25/21 09/25/21 - Allergies Allergies/Adverse Reactions: Allergies Allergy/AdvReac Type Severity Reaction Status Date / Time povidone-iodine Allergy Edema Verified 09/25/21 13:14 [From Betadine] soap * [From Betadine] Allergy Edema Verified 09/25/21 13:14 - Social History Does the pt smoke?: No Smoking Status: Former smoker (Quit smoking about ten years ago.) Does the pt drink ETOH?: No Does the pt have substance abuse?: No - Immunizations Immunizations are current?: Yes PD ED PE NORMAL - Vitals Vital signs reviewed: Yes - General General: Alert and oriented X 3, No acute distress - HEENT HEENT: PERRL, Moist mucous membranes - Neck Neck: Supple, no meningeal sign - Cardiac Cardiac: RRR, Strong equal pulses - Respiratory Respiratory: No respiratory distress, Clear bilaterally - Abdomen Abdomen: Soft, Non tender, Non distended - Derm Derm: Warm and dry - Extremities Extremities: No edema, No calf tenderness / cord - Neuro Neuro: Alert and oriented X 3 - Psych Psych: Normal mood, Other (Appears anxious) - Free text exam Free text exam: No tenderness along the anterior chest wall. Results - Vitals Vitals: Vital Signs - 24 hr 09/25/21 09/25/21 09/25/21 13:09 14:23 15:18 Temperature 36.8 C Heart Rate 110 H 105 H 112 H Respiratory 18 28 H 24 Rate Blood Pressure 155/97 H 167/109 H 143/92 H O2 Saturation 96 95 94 Oxygen O2 Source Room air - EKG (time done) 1316 Rate: Rate (enter#) (102) Rhythm: Sinus tachycardia [place]: Normal Intervals: Normal [place] QRS: Normal Ischemia: Normal ST segments Compare to prior EKG: Unchanged from prior EKG Computer interpretation: Agree with computer - Labs Labs: Laboratory Tests 09/25/21 09/25/21 09/25/21 13:36 13:36 13:36 WBC 11.3 H RBC 4.87 Hgb 14.4 Hct 45.5 MCV 93.4 MCH 29.6 MCHC 31.6 L RDW 14.1 Plt Count 320 MPV 10.0 Neut # (Auto) 8.2 H Lymph # (Auto) 1.7 Ford # (Auto) 1.0 Eos # (Auto) 0.3 Baso # (Auto) 0.1 Absolute Nucleated RBC 0.00 Nucleated RBC % 0.0 Sodium 133 L Potassium 4.6 Chloride 93 L Carbon Dioxide 29 Anion Gap 11.0 BUN 17 Creatinine 0.8 Estimated GFR (MDRD) 72 L Glucose 240 H Calcium 9.6 Total Bilirubin 0.7 AST 26 ALT 29 Alkaline Phosphatase 78 Troponin I High Sens 17.4 H* B-Natriuretic Peptide Total Protein 7.4 Albumin 3.8 Globulin 3.6 Albumin/Globulin Ratio 1.1 Lipase 45 09/25/21 13:36 WBC RBC Hgb Hct MCV MCH MCHC RDW Plt Count MPV Neut # (Auto) Lymph # (Auto) [place] # (Auto) Eos # (Auto) Baso # (Auto) Absolute Nucleated RBC Nucleated RBC % Sodium Potassium Chloride Carbon Dioxide Anion Gap BUN Creatinine Estimated GFR (MDRD) Glucose Calcium Total Bilirubin AST ALT Alkaline Phosphatase Troponin I High Sens B-Natriuretic Peptide 61 Total Protein Albumin Globulin Albumin/Globulin Ratio Lipase PD MEDICAL DECISION MAKING - ED course Complexity details: reviewed old records (Patient had a two-view x-ray this morning which was negative), reviewed results, re-evaluated patient, considered differential (No ST elevation LA, no aortic dissection, no PE, no tension pneumothorax, no aortic aneurysm), d/w patient ED course: Patient with 1-2Patient with a few seconds of sharp chest pain earlier today. Has since resolved. Gradual onset of dyspnea over the past 3 days. She states this feels like her usual anxiety. Was given Ativan here and the symptoms resolved. Has not had any leg swelling. No recent immobilization or surgeries. Her BNP is normal. High-sensitivity troponin is not significantly elevated. Patient states that her usual heart rate is between 90 and 110. No hypoxia. No respiratory distress. We will have the patient follow-up with her doctor for further care. She will return here if she worsens. Patient counseled regarding signs and symptoms for which I believe and urgent re-evaluation would be necessary. Patient with good understanding of and agreement to plan and is comfortable going home at this time This document was made in part using voice recognition software. While efforts are made to proofread this document, sound alike and grammatical errors may occu r. Departure - Departure Disposition: 01 Home, Self Care Clinical Impression: Anxiety Dyspnea Qualifiers: Dyspnea type: shortness of breath Qualified Code(s): R06.02 - Shortness of breath Condition: Good Instructions: ED Dyspnea Shortness of Breath, ED Panic Attack Follow-Up: Yadira Alexandra ARNP [Primary Care Provider] - Within 1 week Comments: Continue your current medications at home. Your EKG, laboratory testing and x- ray do not show any acute abnormalities. You stated you feel much better after Ativan. Discharge Date/Time: 09/25/21 15:29
[2021-09-25] MEDS ORDERED: LORazepam 2 MG/ML VIAL IVP STA (14:25)
[2021-09-25 15:20] VITALS: BP 143/92
== END 2021-09-25 15:29 | disposition home or self-care (01) ==
LOC: ED 13:06
DX: F41.9 Anxiety disorder, unspecified (principal); R06.02 Shortness of breath; Z87.891 Personal history of nicotine dependence
CPT/HCPCS: 36415; 80053; 83690; 83880; 84484; 85025; 93005; 96374; 99284; J2060

== ENCOUNTER 2022-01-18 07:01 | Outpatient (CLI) | payer MEDICARE ==
[2022-01-18 20:46] LABS: ESTIMATED AVERAGE GLUCOSE 200 mg/dL (70-100); HEMOGLOBIN A1c% 8.6 % (4.27-6.07)
== END 2022-01-18 07:02 | disposition home or self-care (01) ==
LOC: LAB.S 07:01
PROVIDERS: ATTEND Nurse Practitioner
DX: E11.65 Type 2 diabetes mellitus with hyperglycemia (principal)
CPT/HCPCS: 36415; 83036

== ENCOUNTER 2022-02-04 07:01 | Outpatient (CLI) | payer MEDICARE ==
[2022-02-04 15:30] LABS: CHOL/HDL RATIO 3.3 (<4.4); CHOLESTEROL 145 mg/dL; HDL CHOLESTEROL 44 mg/dL; LDL CHOLESTEROL,CALCULATED 87 mg/dL; TRIGLYCERIDES 72 mg/dL; VLDL CHOLESTEROL 14 mg/dL
== END 2022-02-04 07:02 | disposition home or self-care (01) ==
LOC: LAB.S 07:01
PROVIDERS: ATTEND Registered Nurse
DX: Z00.00 Encounter for general adult medical examination without abnormal findings (principal); I10 Essential (primary) hypertension; E78.5 Hyperlipidemia, unspecified
CPT/HCPCS: 36415; 80061; 83721

== ENCOUNTER 2022-02-05 09:15 | Outpatient (CLI) | payer MEDICARE ==
--- NOTE | 2022-02-05 14:55 | XRAY Report ---
PROCEDURE: Lumbar Spine w/Flex/Ext INDICATIONS: LUMBAR PAIN TECHNIQUE: AP & Lateral views of the lumbar spine were acquired, followed by flexion & extension dangelo ding views of the lumbar spine. COMPARISON: None. FINDINGS: Bones: 5 [id number] vertebrae are present. There is trace retrolisthesis of L2 on L3, L3 on L4 and L5 on S1. Severe disc and foraminal narrowing are noted at L5-S1. Multilevel anterior osteophyte s are present bridging at T12-L1, L1-L2. No vertebral body compression fractures. No suspicious bony lesions. Soft tissues: Overlying bowel gas pattern is normal. No suspicious soft tissue calcifications. Flexion/extension: There is mildly reduced range of motion, with preserved normal alignment. IMPRESSION: Multilevel degenerative changes most severe at L5-S1. Reviewed by: Jazmine Clark MD on 02/05/2022 2:54 PM PDT Approved by: Jazmine Clark MD on 02/05/2022 2:54 PM PDT Station ID: [id number]
== END 2022-02-05 09:16 | disposition home or self-care (01) ==
LOC: DI.S 09:15
PROVIDERS: ATTEND Physician Assistant
DX: M43.16 Spondylolisthesis, lumbar region (principal); M43.17 Spondylolisthesis, lumbosacral region; M51.37 Other intervertebral disc degeneration, lumbosacral region; M48.07 Spinal stenosis, lumbosacral region; M25.78 Osteophyte, vertebrae

== ENCOUNTER 2022-04-19 05:05 | Emergency (ER) | payer MEDICARE ==
[2022-04-19 05:27] VITALS: BP 148/101
--- NOTE | 2022-04-19 05:38 | ED Physician Documentation ---
PD HPI LOWER EXT INJURY - Stated complaint Stated Complaint: SOA - Chief complaint Chief Complaint: Ext Problem - History obtained from History obtained from: Patient - History of Present Illness PD HPI LOW EXT INJURY LOCATION: Left, Toe (second toe) Type of injury: Other (unclear if there was an injury) Timing - details: Gradual onset Pain level max: 0 Pain level now: 0 Associated symptoms: Numbness Recently seen: Not recently seen - Additional information Additional information: patient is diabetic and has decreased sensation in her feet. She presents due to 1-2 days of swelling and redness of her left second toe. She initially says she injured the toe 2 days ago, but in further discussion, it is not clear if she actually had an injury or if she is assuming she did because of the appearance of the toe. Her chief concern is the appearance of the toe and concern that it might be infected. 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 : None HEENT: None Psych: Depression, Anxiety, Panic attacks Musculoskeletal: Osteoarthritis Derm: None - Past Surgical History Past Surgical History: Yes General: Cholecystectomy, Colonoscopy, Other /R DEVELOPER: Tubal ligation - Present Medications Home Medications: Ambulatory Orders Medication Instructions Recorded Confirmed ARIPiprazole [Abilify] 10 mg PO DAILY 10/23/14 09/25/21 Aspirin [Aspir 81] 81 mg PO DAILY 10/23/14 09/25/21 Levothyroxine [Synthroid] 100 mcg PO QDAC 10/23/14 09/25/21 Naproxen 500 mg PO BID 10/23/14 09/25/21 fluPHENAZine HCl [Fluphenazine HCl] 10 mg PO BID 10/23/14 09/25/21 glipiZIDE [Glipizide] 10 mg PO BID 10/23/14 09/25/21 metFORMIN [Glucophage] 1,000 mg PO BID 10/23/14 09/25/21 Atorvastatin Calcium 40 mg PO DAILY PM 04/04/21 09/25/21 Dextroamphetamine/Amphetamine 30 mg PO BID 04/04/21 09/25/21 [Dextroamp-Amphetamine 5 mg Tab] Losartan/Hydrochlorothiazide 1 tab PO DAILY 04/04/21 09/25/21 [Losartan-Hctz 100-12.5 mg Tab] amLODIPine [Norvasc] 5 mg PO DAILY 04/04/21 04/19/22 Diclofenac Sodium [Voltaren 20 gm TP DAILY 09/25/21 09/25/21 Arthritis Pain] Lisinopril [Zestril] 40 mg PO DAILY 09/25/21 09/25/21 Omeprazole Magnesium 20 mg PO DAILY 09/25/21 09/25/21 Oxycodone HCl 10 mg ORAL DAILY PRN 09/25/21 09/25/21 cephALEXin [Keflex] 500 mg PO Q6H #20 cap 04/19/22 - Allergies Allergies/Adverse Reactions: Allergies Allergy/AdvReac Type Severity Reaction Status Date / Time povidone-iodine Allergy Edema Verified 09/25/21 13:14 [From Betadine] soap * [From Betadine] Allergy Edema Verified 09/25/21 13:14 - Social History Does the pt smoke?: No Smoking Status: Former smoker (Quit smoking about ten years ago.) Does the pt drink ETOH?: No Does the pt have substance abuse?: No - Immunizations Immunizations are current?: Yes PD ED PE NORMAL - Vitals Vital signs reviewed: Yes - General General: Alert and oriented X 3, No acute distress, Other (obese) PD ED PE EXPANDED - Extremities Feet visual: 1 - swelling (nontender intact hemorrhagic bulla) 2 - swelling (nontender clear bulla) 3 - swelling (nontender clear bulla) Results - Vitals Vitals: Oxygen O2 Source Nasal cannula PD MEDICAL DECISION MAKING - ED course Complexity details: considered differential, d/w patient ED course: presume peripheral neuropathy due to diabetes, as she has little sensation in both feet. There is a large bulla at tip of left second toe and this is unroofed using beveled edge of 18g needle on end of 5 cc syringe. There is serosanguinous return without pus. Antibiotic prescribed to minimize risk of infection. Return precautions discussed, advised to establish with a valet cashier and make/keep regular appointments for foot care given that she is diabetic and seems to have peripheral neuropathy Departure - Departure Disposition: 01 Home, Self Care Clinical Impression: Skin bulla Condition: Good Instructions: ED Foot Care Diabetic Follow-Up: Jessica Andrews DPM [Provider Admit Priv/Credential] - Prescriptions: cephALEXin [Keflex] 500 mg PO Q6H #20 cap Comments: There is swelling of your left second, third, and fifth toes. This is most likely due to excess friction and pressure (such as from tight socks or ill- fitting footwear); this is a common problem in diabetics, particularly if the feet are becoming numb over time (neuropathy). I drained the swelling of the s econd toe because there was some blood in the area of swelling, as well as to see if there was any pus to suggest an infection. Fortunately, there was no pus, but since the layers below the surface of the skin are now exposed (through the opening made to allow drainage), the risk of infection is increased and to counter this, you are being prescribed an antibiotic (cephalexin) for five days. The antibiotic should lower the risk of the toe becoming infected. You should wash the toes gently each day with soap and water and dry them thoroughly. You need to see a valet cashier on a regular basis. Contact information for a local valet cashier is elsewhere on these discharge instructions. Discharge Date/Time: 04/19/22 06:24
[2022-04-19] MEDS ORDERED: cephALEXin 250 MG CAPSULE PO STA (06:07)
[2022-04-19] MEDS ORDERED: BACITRACIN ZINC OINT 1 PACKET TOP STA (06:16)
== END 2022-04-19 06:24 | disposition home or self-care (01) ==
LOC: ED 05:05
DX: E11.628 Type 2 diabetes mellitus with other skin complications (principal); Z79.84 Long term (current) use of oral hypoglycemic drugs; Z87.891 Personal history of nicotine dependence
CPT/HCPCS: 99282; 99283; A9270

== ENCOUNTER 2022-04-25 12:51 | Outpatient (CLI) | payer MEDICARE | END 2022-04-25 12:52 | disposition home or self-care (01) | LOC: RT 12:51 | PROVIDERS: ATTEND Registered Nurse | DX: R06.09 Other forms of dyspnea (principal); Z57.39 Occupational exposure to other air contaminants; Z87.891 Personal history of nicotine dependence | CPT/HCPCS: 94010 ==

== ENCOUNTER 2022-08-07 10:08 | Outpatient (CLI) | payer MEDICARE ==
[2022-08-07 14:48] LABS: ALBUMIN 3.7 g/dL (3.2-5.5); ALBUMIN/GLOBULIN RATIO 1.1 (1.0-2.2); ALKALINE PHOSPHATASE 75 IU/L (42-121); ALT ALANINE AMINOTRANSFERASE 32 IU/L (10-60); AST ASPARTATE AMINOTRANSFERASE 22 IU/L (10-42); BILIRUBIN,TOTAL 0.4 mg/dL (0.2-1.0); BUN - BLOOD UREA NITROGEN 19 mg/dL (6-20); CALCIUM 9.4 mg/dL (8.5-10.3); CARBON DIOXIDE - CO2 30 mmol/L (21-32); CHLORIDE 98 mmol/L (101-111); CHOL/HDL RATIO 2.9 (<4.4); CHOLESTEROL 210 mg/dL; CREATININE 0.7 mg/dL (0.4-1.0); GFR - MDRD 84 (>89); GLUCOSE 185 mg/dL (70-100); HDL CHOLESTEROL 72 mg/dL; LDL CHOLESTEROL,CALCULATED 117 mg/dL; LDL/HDL RATIO 1.6 (<4.4); POTASSIUM 4.6 mmol/L (3.5-5.0); SODIUM 135 mmol/L (135-145); TRIGLYCERIDES 104 mg/dL; VLDL CHOLESTEROL 21 mg/dL
[2022-08-07 15:15] LABS: ESTIMATED AVERAGE GLUCOSE 160 mg/dL (70-100); HEMOGLOBIN A1c% 7.2 % (4.27-6.07)
== END 2022-08-07 10:09 | disposition home or self-care (01) ==
LOC: LAB.S 10:08
PROVIDERS: ATTEND Nurse Practitioner
DX: E11.9 Type 2 diabetes mellitus without complications (principal); E78.5 Hyperlipidemia, unspecified; E03.9 Hypothyroidism, unspecified
CPT/HCPCS: 36415; 80053; 80061; 82043; 82570; 83036; 83721; 84443